=== PATIENT | female | born 1980 | race Two or more races ===

== ENCOUNTER → 2018-08-08 | Outpatient (CLI) | payer OTHER ==
--- NOTE | 2018-08-08 16:04 | RAD ---
Thyroid ultrasound, 08/08/2018: HISTORY: Enlarged thyroid gland The right lobe of the gland measures 5.1 x 1.5 x 1.4 cm while the left lobe of the gland measures 3.5 x 1.4 x 1.1 cm. The thyroid echo pattern is mildly heterogeneous. No thyroid nodule is seen. The thyroid vascularity is unremarkable. IMPRESSION: No significant abnormality is detected. Electronically signed by: Odell Diaz MD (08/08/2018 4:01 PM) [facility]
== END | disposition home or self-care (01) ==
LOC: US 13:40
PROVIDERS: ATTEND Nurse Practitioner Family
DX: E04.8 Other specified nontoxic goiter (principal)
CPT/HCPCS: 76536